=== PATIENT | female | born 1970 | race Caucasian/White ===

== ENCOUNTER 2025-01-30 15:43 | Observation (INO) ==
--- NOTE | 2025-01-30 15:57 | Emergency Department Note ---
Impression & Plan GI bleed, Acute blood loss anemia ED Provider Note NAME: MARIA A DE LA CRUZ AGE: 54 SEX: F : 1970 ARRIVES VIA: Ambulance INFORMANT: Patient, ED PROVIDER(S): Tigre Jeong MD CHIEF COMPLAINT: Rectal bleeding MEDICAL DECISION MAKING: Patient presents due to concern for dark rectal bleeding. Patient is not from the area but does have a prior history of diverticulitis does take diclofenac as well as aspirin. IV was established and blood work was obtained along with a [id number]. Patient ordered IV fluids. CT abdomen pelvis performed. PPI bolus and drip ordered. The patient's plan of care was 8. Patient reports that her baseline hemoglobin about 2 weeks ago was greater than 10. Patient with a white count of 15 hemoglobin of 8.2. The patient's platelet count is 507. Kidney function is unremarkable. Blood sugar 142. Patient's CT abdomen pelvis is negative. I did speak the on-call hospital service given the patient's GI bleed and low hemoglobin. Patient was admitted to the medicine service by Dr. Stauffer. Discussion w/ other healthcare providers: Dr. Stauffer inpatient medicine service Prior /Outside records reviewed: none Differential diagnosis: Diverticulitis, AVM, coagulopathy, colitis, inflammatory bowel disease, malignancy, esophagitis, peptic ulcer disease, variceal bleed, gastritis, fissure, hemorrhoids, as well as other pathologies. Diagnostics, as interpreted by me: ECG: Normal sinus rhythm, rate of 87, normal intervals, normal axis no ST elevations. Cardiac monitoring: An order was placed for continuous cardiac monitoring. The monitor shows a rate of 89 with sinus rhythm. Patient was placed on pulse oximetry Medical decision rules: None Imaging studies: I informally interpreted the patient's CT abdomen pelvis does not show evidence of obvious obstruction with formal report to follow. HPI: Patient presents due to concern for rectal bleeding. The patient is reports some dark and occasionally red discolored stool and blood with associated clots that began this morning. The patient is having about 4 bouts of this most recently while at the [employer]. The patient does complain of diffuse abdominal pain although worse in the left lower quadrant. Patient does have a history of diverticulitis. Patient does take diclofenac twice a day for back pain. Patient also does take a baby aspirin. She does have a prior history of a carotid aneurysm status post clip per coiling. Patient does follow with a Dr. Luc SCHERER in [place]. The patient is appear visiting. Patient does complain of feeling lightheaded and dizzy. PAST MEDICAL HISTORY: Degenerative disc disease, carotid aneurysm, diverticulitis PAST SURGICAL HISTORY: hysterectomy, carotid clip/coiling SOCIAL HISTORY: See Below HOME MEDICATIONS: See Below ALLERGIES: See Below VITALS: See Below PHYSICAL EXAMINATION: GENERAL: NAD, non-toxic. EYE EXAM: Normal conjunctiva. PERRL, no anisocoria and EOM's grossly intact w/o pain. OROPHARYNX: Moist mucus membranes, grossly normal dentition. NECK: Trachea midline, no stridor. LUNGS: Clear to auscultation. Normal chest wall mechanics. HEART: NSR, no MRG. ABDOMEN: Abdomen soft, diffuse abdominal discomfort most prominent in the left lower quadrant, no masses, no rebound or guarding. BACK: No CVA TTP. SKIN: No rashes and no bruising. UPPER EXTREMITIES: Upper extremities are grossly normal. LOWER EXTREMITIES: Grossly normal, no edema. NEURO EXAM: Awake and alert, follows commands, no obvious facial asymmetry, normal speech, moves all 4 extremities. Past Med/Surg History Problem List (Updated 01/30/25 @ 18:53 by Tigre Jeong MD) Degenerative joint disease Primary hypothyroidism Acute blood loss anemia (Acute) GI bleed (Acute) Social History Smoking Status: Current every day smoker Tobacco Type: Cigarettes Feels Safe at Home: Yes Allergies Allergies Allergy/AdvReac Type Severity Reaction Status Date / Time bee venom protein (honey bee) Allergy swelling Verified 01/30/25 16:34 cephalexin [From Keflex] Allergy Hives Verified 01/30/25 16:34 ciprofloxacin [From Cipro] Allergy Hives Verified 01/30/25 16:34 doxycycline Allergy Hives Verified 01/30/25 16:34 sulfamethoxazole Allergy Hives Verified 01/30/25 16:34 [From Bactrim] tetracycline Allergy Hives Verified 01/30/25 16:34 trimethoprim [From Bactrim] Allergy Hives Verified 01/30/25 16:34 acetaminophen [From Percocet] AdvReac Gastrointestinal Verified 01/30/25 16:34 Upset oxycodone [From Percocet] AdvReac Gastrointestinal Verified 01/30/25 16:34 Upset topiramate [From Topamax] AdvReac paranoia Verified 01/30/25 16:34 Home Meds Home Medications Medication Instructions Recorded Confirmed Qulipta 1 dose PO QAM 01/30/25 01/30/25 amoxicillin 1 cap PO TID 01/30/25 01/30/25 aspirin 81 mg tablet,delayed 81 mg PO QAM 01/30/25 01/30/25 release biotin 10,000 mcg capsule 10,000 mcg PO QDD 01/30/25 01/30/25 bupropion HCl 200 mg tablet,12 hr 200 mg PO QAM 01/30/25 01/30/25 sustained-release (Wellbutrin SR) calcium carbonate (Calcium 600) 1,200 mg PO QDD 01/30/25 01/30/25 cholecalciferol (vitamin D3) 125 125 mcg PO QDD 01/30/25 01/30/25 mcg (5,000 unit) tablet (Vitamin D3) diclofenac potassium 50 mg tablet 50 mg PO BID 01/30/25 01/30/25 esomeprazole magnesium 40 mg 40 mg PO BID 01/30/25 01/30/25 capsule,delayed release (Nexium) fexofenadine 180 mg tablet 180 mg PO QAM 01/30/25 01/30/25 fluoxetine 20 mg capsule (Prozac) 60 mg PO QAM 01/30/25 01/30/25 gabapentin 300 mg capsule 300 mg PO BID 01/30/25 01/30/25 levothyroxine 50 mcg tablet 50 mcg PO DAILYBB 01/30/25 01/30/25 magnesium 200 mg tablet 400 mg PO QDD 01/30/25 01/30/25 metoclopramide HCl 5 mg tablet 5 mg PO QPM 01/30/25 01/30/25 (Reglan) multivitamin 1 tab PO QAM 01/30/25 01/30/25 Results & Data (ED) Vital Signs Vital Signs - 24 hr 01/30/25 15:57 01/30/25 15:57 01/30/25 16:01 Temperature 36.8 C Temperature Source Oral Pulse Rate 88 88 87 Pulse Rate [Apical] Respiratory Rate 16 16 Respiratory Effort / Characteristics Non-Labored Spontaneous Respiratory Depth Normal Respiratory Pattern Regular Blood Pressure 117/67 Blood Pressure [Right Arm] Blood Pressure Mean 83 Blood Pressure Mean [Right Arm] Pulse Oximetry 95 95 Oxygen Delivery Method Room Air Room Air Sepsis Recent Fever Within 48 Hours No Sepsis New/Unexplained Change in Mental Status No Sepsis Action Taken by Nursing No Action Required 01/30/25 18:00 Temperature Temperature Source Pulse Rate Pulse Rate [Apical] 78 Respiratory Rate 16 Respiratory Effort / Characteristics Non-Labored Spontaneous Respiratory Depth Normal Respiratory Pattern Regular Blood Pressure Blood Pressure [Right Arm] 130/96 Blood Pressure Mean Blood Pressure Mean [Right Arm] 107 Pulse Oximetry 100 Oxygen Delivery Method Room Air Sepsis Recent Fever Within 48 Hours Sepsis New/Unexplained Change in Mental Status Sepsis Action Taken by Shelter Medications Current Medication List: was personally reviewed by me Laboratory Data Attestation: I reviewed the patient's lab results. 01/30/25 15:53 01/30/25 15:53 Lab Results 01/30/25 01/30/25 01/30/25 Range/Units 15:53 15:54 15:58 WBC 15.78 H (4.8-10.8) K/ul RBC 3.22 L (4.20-5.40) M/uL Hgb 8.2 L (12.0-16.0) g/dl POC Hgb 8.5 L (12.0-16.0) g/dl Hct 26.1 L (37.0-47.0) % POC Hct 25 L (37-47) % MCV 81.1 (80.0-100.0) fL MCH 25.5 (25.0-34.0) pg MCHC 31.4 L (32.0-36.0) g/dL RDW Std Deviation 47.9 H (36.4-46.3) fL RDW Coeff of Ricki 16.2 H (11.5-14.5) % Plt Count 507 H (130-400) K/uL MPV 8.4 L (9.4-12.4) fL Immature Gran % (Auto) 0.4 % Neut % (Auto) 73.8 % Lymph % (Auto) 19.5 % Fallon % (Auto) 4.9 % Eos % (Auto) 0.9 % Baso % (Auto) 0.5 % Neut # (Auto) 11.63 H (1.40-6.50) K/uL Lymph # (Auto) 3.08 (1.20-3.40) K/uL Fallon # (Auto) 0.78 H (0.11-0.59) K/uL Eos # (Auto) 0.14 (0.00-0.50) K/uL Baso # (Auto) 0.08 (0.00-0.20) K/uL Immature Gran # (Auto) 0.07 (0.01-0.20) K/uL PT 10.0 (9.0-12.0) Seconds INR 0.9 (0.9-1.1) APTT 22 (21-31) Seconds PTT Ratio 0.8 POC Sodium 137 (135-144) mmol/L Sodium 135 L (136-145) mmol/L POC Potassium 3.6 (3.3-5.0) mmol/L Potassium 3.6 (3.5-5.1) mmol/L POC Chloride 102 (101-112) mmol/L Chloride 104 (98-107) mmol/L Carbon Dioxide 23 (21-32) mmol/L POC Total CO2 20 L (24-31) mmol/L Anion Gap 8 (3-11) POC Anion Gap 19.0 (16-25) mmol/L POC BUN 16 (7-18) mg/dl BUN 17 (6-23) mg/dl Creatinine 0.78 (0.6-1.2) mg/dl POC Creatinine 0.8 (0.6-1.3) mg/dl Est Cr Clr Drug Dosing 101.0 ml/min eGFR 90.20 BUN/Creatinine Ratio 21.8 H (10-20) Glucose 142 H (70-99(Fasting)) mg/dl POC Glucose (other) 139 H (70-99) mg/dl Calcium 8.7 (8.6-10.3) mg/dl POC Ioniz Calcium Nathen 1.16 (1.12-1.32) mmol/l Total Bilirubin 0.2 (0.2-1.0) mg/dl AST 13 (13-39) U/L ALT 13 (7-52) U/L Alkaline Phosphatase 81 (34-104) U/L Total Protein 6.2 (6.0-8.3) gm/dl Albumin 3.5 (3.4-5.0) gm/dl Globulin 2.7 (2.5-4.0) gm/dl Albumin/Globulin Ratio 1.3 (0.9-2) Blood Type AB Positive Antibody Screen NEGATIVE Administered Medications Pantoprazole Sodium 40 mg/ (Dextrose) 100 mls @ 20 mls/hr IV Q5H JONATHAN Stop: 03/01/25 16:14 Last Admin: 01/30/25 16:36 Dose: 8 mg/hr, 20 mls/hr Documented By: ELDON Discontinued Medications Sodium Chloride (Nss) 1,000 mls @ 999 mls/hr IV .Q1H1M JONATHAN Stop: 01/30/25 17:00 Last Infusion: 01/30/25 17:34 Dose: Infused Documented By: Admin: 01/30/25 16:18 Dose: 999 mls/hr Documented By: ELDON Pantoprazole Sodium 80 mg/ (Dextrose) 120 mls @ 480 mls/hr IV NOW ONE Stop: 01/30/25 16:06 Last Infusion: 01/30/25 17:34 Dose: Infused Documented By: Admin: 01/30/25 16:18 Dose: 480 mls/hr Documented By: ELDON Ioversol (Optiray 320 100ml) 93 ml IV ONCE ONE Stop: 01/30/25 16:14 Last Admin: 01/30/25 16:13 Dose: 93 ml Documented By: BRIANNA Pantoprazole Sodium (Pantoprazole Bolus/Drip) 1 each IV NOW STA Stop: 01/30/25 15:53 Last Admin: 01/30/25 16:24 Dose: Not Given Documented By: ELDON Imaging Data Radiologist's Impression: Abdomen/Pelvis CT 01/30/25 15:52 EXAM: CT Abdomen and Pelvis Without Intravenous Contrast INDICATION: Rectal bleeding. TECHNIQUE: Axial computed tomography images of the abdomen and pelvis without intravenous contrast. Sagittal and coronal reformatted images were created and reviewed. This CT exam was performed using one or more of the following dose reduction techniques: automated exposure control, adjustment of the mA and/or kV according to patient size, and/or use of iterative reconstruction technique. CONTRAST: 93 ml of Optiray 320 was administered intravenously. COMPARISON: No relevant prior studies available. FINDINGS: Limitations: None. Lung bases: No abnormality noted. Pleural space: No visualized pleural effusion or pneumothorax. Heart: No abnormality noted. Mediastinum: No abnormality noted. ABDOMEN: Liver: Lack of intravenous contrast limits detection of some masses. No abnormality noted. Gallbladder and bile ducts: No calcified stones or surrounding fluid. No ductal dilation. Pancreas: No pancreatic mass, calcification, inflammation or ductal dilation noted. Spleen: No significant abnormality noted. Adrenals: No significant abnormality noted. Kidneys and ureters: No abnormality noted. No stones. No hydronephrosis. No significant perinephric fluid. Stomach and bowel: No distension or mucosal thickening. No inflammation noted. PELVIS: Appendix: No findings to suggest acute appendicitis. Bladder: Appears normal for the degree of filling. No stones or inflammation. No large mass. Masses may not be detected in the absence of opacification. Reproductive: No abnormalities noted. ABDOMEN and PELVIS: Intraperitoneal space: No free air. No significant fluid collection. Bones/joints: Moderate convex left scoliotic curvature of the lumbar spine. Degenerative changes present most severe at L3-L4. No acute osseous abnormality. Degenerative changes noted throughout the spine. No acute osseous abnormality seen. Soft tissues: No significant abnormality noted. Vasculature: Atherosclerotic calcification of the aorta and branches. No aneurysm. Lymph nodes: No pathologically enlarged lymph nodes. IMPRESSION: No acute abnormality noted. ACT 112: N/A Electronically signed by Sary Gordillo 01-30-2025 5:46 PM Discharge Plan Visit Data Chief Complaint: GI Bleed ED Provider: Tigre Jeong Discharge Problem: GI bleed, Acute blood loss anemia Patient Disposition: Admitted As Inpatient Condition: Good Forms Stand Alone Forms: My [facility] Prescriptions Prescriptions: No Action metoclopramide HCl [Reglan] 5 mg Tablet 5 mg PO QPM esomeprazole magnesium [Nexium] 40 mg Capsule,Delayed Release(Dr/Ec) 40 mg PO BID diclofenac potassium 50 mg Tablet 50 mg PO BID fluoxetine [Prozac] 20 mg Capsule 60 mg PO QAM bupropion HCl [Wellbutrin SR] 200 mg Tablet Sustained-Release 12 Hr 200 mg PO QAM aspirin [Aspirin Low-Strength] 81 mg Tablet,Delayed Release (Dr/Ec) 81 mg PO QAM levothyroxine 50 mcg Tablet 50 mcg PO DAILYBB gabapentin 300 mg Capsule 300 mg PO BID Qulipta 1 dose PO QAM Rx Instructions: unknown strength amoxicillin 1 cap PO TID Rx Instructions: started december to take for 10 days for sinus infection, unknown dose calcium carbonate [Calcium 600] 600 mg calcium (1,500 mg) Tablet 1,200 mg PO QDD biotin 10,000 mcg Capsule 10,000 mcg PO QDD magnesium 200 mg Tablet 400 mg PO QDD cholecalciferol (vitamin D3) [Vitamin D3] 125 mcg (5,000 unit) Tablet 125 mcg PO QDD multivitamin Tablet 1 tab PO QAM fexofenadine [Tayler] 180 mg Tablet 180 mg PO QAM Referrals Referrals: PCP,NO [Physician] - Discharge Problem: GI bleed Qualifiers: GI bleed type/associated pathology: unspecified gastrointestinal hemorrhage type Qualified Code(s): K92.2 - Gastrointestinal hemorrhage, unspecified
[2025-01-30 16:08] LABS: Hematocrit (blood only) 26.1 % (37.0-47.0); Hemoglobin 8.2 g/dl (12.0-16.0); Immature Granulocytes # (auto) 0.07 K/uL (0.01-0.20); Immature Granulocytes % (auto) 0.4 %; Mean Corpuscular Hemoglobin 25.5 pg (25.0-34.0); Mean Corpuscular Volume 81.1 fL (80.0-100.0); Platelet Count 507 K/uL (130-400); RDW Standard Deviation 47.9 fL (36.4-46.3); Red Blood Count 3.22 M/uL (4.20-5.40); White Blood Count 15.78 K/ul (4.8-10.8)
[2025-01-30] MEDS: OPTIRAY 320 100ml IV ONE (16:13)
[2025-01-30] MEDS: SODIUM CHLORIDE 0.9% 1,000 ML IV SCH ×2 (16:18→21:56)
[2025-01-30] MEDS: PANTOPRAZOLE BOLUS/DRIP IV STA (16:24)
[2025-01-30 16:25] LABS: Alanine Aminotransferase 13.0 U/L (7-52); Albumin Globulin Ratio 1.3 (0.9-2); Albumin Level 3.5 gm/dl (3.4-5.0); Alkaline Phosphatase 81.0 U/L (34-104); Anion Gap 8.0 (3-11); Bilirubin,Total 0.2 mg/dl (0.2-1.0); Blood Urea Nitrogen 17.0 mg/dl (6-23); Calcium 8.7 mg/dl (8.6-10.3); Carbon Dioxide 23.0 mmol/L (21-32); Chloride 104.0 mmol/L (98-107); Creatinine Clr Calc Pharmacy 101.0 ml/min; Globulin 2.7 gm/dl (2.5-4.0); Glucose 142.0 mg/dl (70-99(Fasting)); Potassium 3.6 mmol/L (3.5-5.1); Sodium 135.0 mmol/L (136-145); Total Protein 6.2 gm/dl (6.0-8.3)
[2025-01-30] MEDS: PANTOprazole 40 MG in DEXTROSE 5% MINI-B 100 ML IV SCH (16:36)
[2025-01-30 16:38] LABS: INR 0.9 (0.9-1.1); Partial Thromboplastin Time 22 Seconds (21-31); Prothrombin Time 10.0 Seconds (9.0-12.0)
--- NOTE | 2025-01-30 17:46 | CT Scan Report ---
EXAM: CT Abdomen and Pelvis Without Intravenous Contrast INDICATION: Rectal bleeding. TECHNIQUE: Axial computed tomography images of the abdomen and pelvis without intravenous contrast. Sagittal and coronal reformatted images were created and reviewed. This CT exam was performed using one or more of the following dose reduction techniques: automated exposure control, adjustment of the mA and/or kV according to patient size, and/or use of iterative reconstruction technique. CONTRAST: 93 ml of Optiray 320 was administered intravenously. COMPARISON: No relevant prior studies available. FINDINGS: Limitations: None. Lung bases: No abnormality noted. Pleural space: No visualized pleural effusion or pneumothorax. Heart: No abnormality noted. Mediastinum: No abnormality noted. ABDOMEN: Liver: Lack of intravenous contrast limits detection of some masses. No abnormality noted. Gallbladder and bile ducts: No calcified stones or surrounding fluid. No ductal dilation. Pancreas: No pancreatic mass, calcification, inflammation or ductal dilation noted. Spleen: No significant abnormality noted. Adrenals: No significant abnormality noted. Kidneys and ureters: No abnormality noted. No stones. No hydronephrosis. No significant perinephric fluid. Stomach and bowel: No distension or mucosal thickening. No inflammation noted. PELVIS: Appendix: No findings to suggest acute appendicitis. Bladder: Appears normal for the degree of filling. No stones or inflammation. No large mass. Masses may not be detected in the absence of opacification. Reproductive: No abnormalities noted. ABDOMEN and PELVIS: Intraperitoneal space: No free air. No significant fluid collection. Bones/joints: Moderate convex left scoliotic curvature of the lumbar spine. Degenerative changes present most severe at L3-L4. No acute osseous abnormality. Degenerative changes noted throughout the spine. No acute osseous abnormality seen. Soft tissues: No significant abnormality noted. Vasculature: Atherosclerotic calcification of the aorta and branches. No aneurysm. Lymph nodes: No pathologically enlarged lymph nodes. IMPRESSION: No acute abnormality noted. ACT 112: N/A Electronically signed by Sary Gordillo 01-30-2025 5:46 PM
--- NOTE | 2025-01-30 18:28 | History & Physical Report ---
Date of Service January 30, 2025 Assessment & Plan (1) GI bleed: Plan: Suspected lower GI source probably from diverticulosis. Clear liquid diet for now along with IV fluids. Serial labs. Will obtain GI consult if her symptoms persist (2) Acute blood loss anemia: Plan: Hemoglobin slightly low at 8.2 on admission. Will follow every 6 hours. Transfuse as needed to keep hemoglobin greater than 7. She has given consent for blood transfusion if it becomes necessary (3) Primary hypothyroidism: Plan: Continue current thyroid replacement. Will check free T3, free T4, and TSH level (4) Degenerative joint disease: Plan: Diclofenac is on hold. Symptomatic treatment if necessary Plan Anticipate eventual discharge back to her home when lower GI bleeding has stopped and hemoglobin is stable. History of Present Illness Chief Complaint: Bloody stool Primary Care Provider: Modesto Larsen MD 54-year-old white female with a 1 day history of rectal bleeding with some clots and grossly bloody stool. She denies any nausea or vomiting. She has diffuse abdominal pain. No previous history of GI bleed. She states she takes Voltaren on a daily basis along with a baby aspirin daily. She is from out of town visiting family members. Coagulation parameters are normal. She is anemic with hemoglobin 8.2 on admission. She has given consent for blood transfusion if it becomes necessary. Serial labs ordered. Allergies Allergy/AdvReac Type Severity Reaction Status Date / Time bee venom protein (honey bee) Allergy swelling Verified 01/30/25 16:34 cephalexin [From Keflex] Allergy Hives Verified 01/30/25 16:34 ciprofloxacin [From Cipro] Allergy Hives Verified 01/30/25 16:34 doxycycline Allergy Hives Verified 01/30/25 16:34 sulfamethoxazole Allergy Hives Verified 01/30/25 16:34 [From Bactrim] tetracycline Allergy Hives Verified 01/30/25 16:34 trimethoprim [From Bactrim] Allergy Hives Verified 01/30/25 16:34 acetaminophen [From Percocet] AdvReac Gastrointestinal Verified 01/30/25 16:34 Upset oxycodone [From Percocet] AdvReac Gastrointestinal Verified 01/30/25 16:34 Upset topiramate [From Topamax] AdvReac paranoia Verified 01/30/25 16:34 Home Medications Medication Instructions Recorded Confirmed Type Qulipta 1 dose PO QAM 01/30/25 01/30/25 History amoxicillin 1 cap PO TID 01/30/25 01/30/25 History aspirin 81 mg tablet,delayed 81 mg PO QAM 01/30/25 01/30/25 History release biotin 10,000 mcg capsule 10,000 mcg PO QDD 01/30/25 01/30/25 History bupropion HCl 200 mg tablet,12 hr 200 mg PO QAM 01/30/25 01/30/25 History sustained-release (Wellbutrin SR) calcium carbonate (Calcium 600) 1,200 mg PO QDD 01/30/25 01/30/25 History cholecalciferol (vitamin D3) 125 125 mcg PO QDD 01/30/25 01/30/25 History mcg (5,000 unit) tablet (Vitamin D3) diclofenac potassium 50 mg tablet 50 mg PO BID 01/30/25 01/30/25 History esomeprazole magnesium 40 mg 40 mg PO BID 01/30/25 01/30/25 History capsule,delayed release (Nexium) fexofenadine 180 mg tablet 180 mg PO QAM 01/30/25 01/30/25 History fluoxetine 20 mg capsule (Prozac) 60 mg PO QAM 01/30/25 01/30/25 History gabapentin 300 mg capsule 300 mg PO BID 01/30/25 01/30/25 History levothyroxine 50 mcg tablet 50 mcg PO DAILYBB 01/30/25 01/30/25 History magnesium 200 mg tablet 400 mg PO QDD 01/30/25 01/30/25 History metoclopramide HCl 5 mg tablet 5 mg PO QPM 01/30/25 01/30/25 History (Reglan) multivitamin 1 tab PO QAM 01/30/25 01/30/25 History Past Med/Surg History Problem List (Updated 01/30/25 @ 18:27 by Grant Stauffer MD) Degenerative joint disease Primary hypothyroidism Acute blood loss anemia GI bleed Social History Smoking Status: Current every day smoker Tobacco Type: Cigarettes Feels Safe at Home: Yes Review of Systems 2 Review of Systems: Constitutionalno fever or chills ENTno blurred vision, no double vision, no epistaxis, no sore throat Respiratoryno cough, no wheezing, no shortness of breath Cardiacno palpitations, no chest pain, no syncope Lawanda nausea, vomiting, melena. Complaining of mild diffuse abdominal discomfort and occasional cramping GUno urinary retention, no urinary incontinence, no dysuria, no hematuria Musculoskeletalno joint pain, no muscle tenderness Skinno bruising, no rashes, no pruritus Neurono isolated weakness, no paresthesia, no weakness Psychno depression, no anxiety Physical Exam 2 Physical Exam: General-alert and oriented x3, no fever, no chills. Appears pale HEENT-head atraumatic and normocephalic, pupils equal and reactive to light, extraocular muscles intact Neck-no lymphadenopathy or thyromegaly, trachea midline Chest-clear to auscultation. No rales, wheezing or rhonchi Cardiac-regular rate and rhythm, normal S1 and S2 Abdomen-normal bowel sounds, no hepatosplenomegaly. Diffuse mild tenderness. No palpable masses. No rebound or guarding Extremities-no cyanosis, clubbing, or edema Neuro-cranial nerves II through XII intact, motor and sensory function within normal limits, strength symmetrical, no focal deficits Psych-normal affect, normal mood Results & Data Results & Data Vital Signs (Past 12 Hours) Vital Signs Temp Pulse Pulse Resp BP BP Pulse Ox 01/30/25 18:00 78 16 130/96 100 01/30/25 16:01 87 01/30/25 15:57 88 16 95 01/30/25 15:57 36.8 C 88 16 117/67 95 O2 Del Method 01/30/25 18:00 Room Air 01/30/25 16:01 01/30/25 15:57 Room Air 01/30/25 15:57 Room Air Laboratory Results 01/30/25 15:53 01/30/25 15:53 Code Status & VTE Plan Code Status Full code PG Care Time/CCT Total # of Minutes Spent Total Time Spent with Patient: Total time spent is greater than 50% in coordination of care (as documented) at patient's floor/unit and/or counseling patient: Coding Level of Care Code 80454 INT INP/OBS CARE 3/75MIN Diagnoses GI bleed K92.2 Acute blood loss anemia D62 Primary hypothyroidism E03.9 Degenerative joint disease M19.90
[2025-01-30] MEDS ORDERED: ONDANSETRON INJ 2 MG/ML 2 ML VIAL IV PRN (21:37)
[2025-01-30] MEDS: GABAPENTIN 300 MG CAP PO SCH (21:57)
[2025-01-30] MEDS: METOCLOPRAMIDE HCL 5 MG TABLET PO SCH (21:58)
[2025-01-30 22:15] LABS: Thyroid Stimulating Hormone 2.253 uIu/ml (0.300-4.500)
[2025-01-30 22:17] LABS: T4 Free Thyroxine 1.15 ng/dl (0.61-1.60)
[2025-01-30] MEDS: PANTOprazole 40 MG/10 ML SYR IV SCH (22:58)
[2025-01-30 23:51] LABS: Hematocrit (blood only) 21.0 % (37.0-47.0); Hemoglobin 6.6 g/dl (12.0-16.0)
[2025-01-31] MEDS ORDERED: SODIUM CHLORIDE 0.9% 100 ML IV PRN (00:11)
[2025-01-31 05:08] LABS: Hematocrit (blood only) 23.4 % (37.0-47.0); Hemoglobin 7.7 g/dl (12.0-16.0); Immature Granulocytes # (auto) 0.05 K/uL (0.01-0.20); Immature Granulocytes % (auto) 0.4 %; Mean Corpuscular Hemoglobin 27.0 pg (25.0-34.0); Mean Corpuscular Volume 82.1 fL (80.0-100.0); Platelet Count 398 K/uL (130-400); RDW Standard Deviation 47.7 fL (36.4-46.3); Red Blood Count 2.85 M/uL (4.20-5.40); White Blood Count 12.51 K/ul (4.8-10.8)
[2025-01-31 05:24] LABS: Anion Gap 5.0 (3-11); Blood Urea Nitrogen 10.0 mg/dl (6-23); Calcium 8.5 mg/dl (8.6-10.3); Carbon Dioxide 24.0 mmol/L (21-32); Chloride 108.0 mmol/L (98-107); Creatinine Clr Calc Pharmacy 113.0 ml/min; Glucose 105.0 mg/dl (70-99(Fasting)); Potassium 3.8 mmol/L (3.5-5.1); Sodium 137.0 mmol/L (136-145)
[2025-01-31] MEDS: LEVOTHYROXINE SODIUM 50 MCG TABLET PO SCH (06:10)
[2025-01-31 08:43] LABS: RBC Morphology Unremarkable
--- NOTE | 2025-01-31 09:18 | Gastrointestinal Consultation ---
Date of Consultation January 31, 2025 Assessment & Plan (1) GI bleed: Pleasant lady with one day of bloody diarrhea. Her story sounds suggestive of an acute infectious enteritis that seems to have resolved. She could also have had a diverticular hemorrhage. She seems to have stopped bleeding since she hasn't had a BM since yesterday before admission. She has had a recent colonoscopy so I don't think anything emergent needs to be done. If she has no further episodes then I think she can go home today and follow up with her GI doctor. She is going to contact him and perhaps add a colonoscopy to her EGD that is already scheduled. Of note, she has been on amoxicillin. It is possible she has c. diff colitis but since the diarrhea has stopped I doubt this and would not pursue it further. History of Present Illness Reason for Consultation: rectal bleeding Attending Physician: Grant Stauffer MD History of Present Illness 54 year old female who was making the trip from [facility] to [place] yesterday. At 9:30 yesterday morning, while on the road she had an episode of diarrhea with blood and clots. About an hour later she had another episode. She went to eat at [employer] and had another episode which was larger in volume. She did not have pain with it but she was nauseated. She tells me she ate a sausage and egg sandwich from [facility] about 90 minutes before her first episode yesterday. She does not recall what she ate the night before. She tells me she had diverticulitis about 10 years ago but has had two colonoscopies since that didn't show diverticular disease. Her last colonoscopy was in 2022. She carries the diagnosis of microscopic colitis but that responded to budesonide and she has not had consistent diarrhea since. She was not having diarrhea prior to yesterday. She also carries the diagnosis of gastroparesis and reflux. She is scheduled for an EGD with endoflip on 03/24. She has had no further bleeding spells since yesterday afternoon and feels back to normal today. She also says she needs to go home today. Allergies Allergy/AdvReac Type Severity Reaction Status Date / Time bee venom protein (honey bee) Allergy swelling Verified 01/30/25 16:34 cephalexin [From Keflex] Allergy Hives Verified 01/30/25 16:34 ciprofloxacin [From Cipro] Allergy Hives Verified 01/30/25 16:34 doxycycline Allergy Hives Verified 01/30/25 16:34 sulfamethoxazole Allergy Hives Verified 01/30/25 16:34 [From Bactrim] tetracycline Allergy Hives Verified 01/30/25 16:34 trimethoprim [From Bactrim] Allergy Hives Verified 01/30/25 16:34 acetaminophen [From Percocet] AdvReac Gastrointestinal Verified 01/30/25 16:34 Upset oxycodone [From Percocet] AdvReac Gastrointestinal Verified 01/30/25 16:34 Upset topiramate [From Topamax] AdvReac paranoia Verified 01/30/25 16:34 Home Medications Medication Instructions Recorded Confirmed Type Qulipta 1 dose PO QAM 01/30/25 01/30/25 History amoxicillin 1 cap PO TID 01/30/25 01/30/25 History aspirin 81 mg tablet,delayed 81 mg PO QAM 01/30/25 01/30/25 History release biotin 10,000 mcg capsule 10,000 mcg PO QDD 01/30/25 01/30/25 History bupropion HCl 200 mg tablet,12 hr 200 mg PO QAM 01/30/25 01/30/25 History sustained-release (Wellbutrin SR) calcium carbonate (Calcium 600) 1,200 mg PO QDD 01/30/25 01/30/25 History cholecalciferol (vitamin D3) 125 125 mcg PO QDD 01/30/25 01/30/25 History mcg (5,000 unit) tablet (Vitamin D3) diclofenac potassium 50 mg tablet 50 mg PO BID 01/30/25 01/30/25 History esomeprazole magnesium 40 mg 40 mg PO BID 01/30/25 01/30/25 History capsule,delayed release (Nexium) fexofenadine 180 mg tablet 180 mg PO QAM 01/30/25 01/30/25 History fluoxetine 20 mg capsule (Prozac) 60 mg PO QAM 01/30/25 01/30/25 History gabapentin 300 mg capsule 300 mg PO BID 01/30/25 01/30/25 History levothyroxine 50 mcg tablet 50 mcg PO DAILYBB 01/30/25 01/30/25 History magnesium 200 mg tablet 400 mg PO QDD 01/30/25 01/30/25 History metoclopramide HCl 5 mg tablet 5 mg PO QPM 01/30/25 01/30/25 History (Reglan) multivitamin 1 tab PO QAM 01/30/25 01/30/25 History Patient History Social History Smoking Status: Current every day smoker Tobacco Type: Cigarettes Cigarettes Per Day: 1/2 pack; Hx Alcohol Use: No Hx Substance Use: No Preferred Language: Maori Communication Ability: Effective Telecommunication Equipment Repairer Required: No Beliefs That Will Affect Care: None Current Living Situation: Family Feels Safe at Home: Yes Assistive Devices: Glasses Review of Systems Review of Systems: All systems reviewed & are unremarkable except as noted in HPI & below Physical Exam Physical Exam: Pleasant female in no distress Constitutional: WD/WN, vitals as above Neck: trachea midline, no thyromegaly Respiratory: normal respiratory effort, lungs clear to auscultation Cardiovascular: RRR, no murmur, no edema Gastrointestinal (Abdomen): normal bowel sounds, soft, nontender, no hepatosplenomegaly Results & Data Vital Signs (Past 12 Hours) Vital Signs Temp Pulse Pulse Pulse Resp BP BP 01/31/25 07:27 36.8 C 77 17 139/69 01/31/25 07:08 80 01/31/25 03:50 36.9 C 76 16 134/80 01/31/25 02:50 36.4 C L 76 18 143/79 H 01/31/25 01:50 EST 36.3 C L 79 16 121/76 01/31/25 01:20 EST 36.9 C 83 16 128/76 01/31/25 01:05 EST 36.9 C 83 16 131/75 01/31/25 01:28 EDT 36.9 C 83 16 128/76 01/30/25 23:22 36.4 C L 77 16 127/56 L Pulse Ox O2 Del Method 01/31/25 07:27 97 Room Air 01/31/25 07:08 01/31/25 03:50 95 Room Air 01/31/25 02:50 97 Room Air 01/31/25 01:50 EST 96 Room Air 01/31/25 01:20 EST 96 Room Air 01/31/25 01:05 EST 99 Room Air 01/31/25 01:28 EDT 96 01/30/25 23:22 98 Room Air Laboratory Results 01/31/25 01/30/25 01/30/25 Range/Units 04:24 22:54 15:58 WBC 12.51 H (4.8-10.8) K/ul RBC 2.85 L (4.20-5.40) M/uL Hgb 7.7 L 6.6 L* (12.0-16.0) g/dl POC Hgb 8.5 L (12.0-16.0) g/dl Hct 23.4 L 21.0 L (37.0-47.0) % POC Hct 25 L (37-47) % MCV 82.1 (80.0-100.0) fL MCH 27.0 (25.0-34.0) pg MCHC 32.9 (32.0-36.0) g/dL RDW Std Deviation 47.7 H (36.4-46.3) fL RDW Coeff of Ricki 15.8 H (11.5-14.5) % Plt Count 398 (130-400) K/uL MPV 8.9 L (9.4-12.4) fL Immature Gran % (Auto) 0.4 % Neut % (Auto) 68.4 % Lymph % (Auto) 22.5 % Irion % (Auto) 7.0 % Eos % (Auto) 1.3 % Baso % (Auto) 0.4 % Neut # (Auto) 8.57 H (1.40-6.50) K/uL Lymph # (Auto) 2.81 (1.20-3.40) K/uL Irion # (Auto) 0.87 H (0.11-0.59) K/uL Eos # (Auto) 0.16 (0.00-0.50) K/uL Baso # (Auto) 0.05 (0.00-0.20) K/uL Immature Gran # (Auto) 0.05 (0.01-0.20) K/uL RBC Morphology Unremarkable PT (9.0-12.0) Seconds INR (0.9-1.1) APTT (21-31) Seconds PTT Ratio POC Sodium 137 (135-144) mmol/L Sodium 137 (136-145) mmol/L POC Potassium 3.6 (3.3-5.0) mmol/L Potassium 3.8 (3.5-5.1) mmol/L POC Chloride 102 (101-112) mmol/L Chloride 108 H (98-107) mmol/L Carbon Dioxide 24 (21-32) mmol/L POC Total CO2 20 L (24-31) mmol/L Anion Gap 5 (3-11) POC Anion Gap 19.0 (16-25) mmol/L POC BUN 16 (7-18) mg/dl BUN 10 (6-23) mg/dl Creatinine 0.68 (0.6-1.2) mg/dl POC Creatinine 0.8 (0.6-1.3) mg/dl Est Cr Clr Drug Dosing 113.0 ml/min eGFR 103.43 BUN/Creatinine Ratio 14.7 (10-20) Glucose 105 H (70-99(Fasting)) mg/dl POC Glucose (other) 139 H (70-99) mg/dl Calcium 8.5 L (8.6-10.3) mg/dl POC Ioniz Calcium Nathen 1.16 (1.12-1.32) mmol/l Total Bilirubin (0.2-1.0) mg/dl AST (13-39) U/L ALT (7-52) U/L Alkaline Phosphatase (34-104) U/L Total Protein (6.0-8.3) gm/dl Albumin (3.4-5.0) gm/dl Globulin (2.5-4.0) gm/dl Albumin/Globulin Ratio (0.9-2) TSH (0.300-4.500) uIu/ml Free T4 (0.61-1.60) ng/dl Free T3 (2.3-4.2) pg/ml Blood Type Blood Type Recheck AB Positive Antibody Screen Crossmatch 01/30/25 01/30/25 Range/Units 15:54 15:53 WBC 15.78 H (4.8-10.8) K/ul RBC 3.22 L (4.20-5.40) M/uL Hgb 8.2 L (12.0-16.0) g/dl POC Hgb (12.0-16.0) g/dl Hct 26.1 L (37.0-47.0) % POC Hct (37-47) % MCV 81.1 (80.0-100.0) fL MCH 25.5 (25.0-34.0) pg MCHC 31.4 L (32.0-36.0) g/dL RDW Std Deviation 47.9 H (36.4-46.3) fL RDW Coeff of Ricki 16.2 H (11.5-14.5) % Plt Count 507 H (130-400) K/uL MPV 8.4 L (9.4-12.4) fL Immature Gran % (Auto) 0.4 % Neut % (Auto) 73.8 % Lymph % (Auto) 19.5 % Irion % (Auto) 4.9 % Eos % (Auto) 0.9 % Baso % (Auto) 0.5 % Neut # (Auto) 11.63 H (1.40-6.50) K/uL Lymph # (Auto) 3.08 (1.20-3.40) K/uL Irion # (Auto) 0.78 H (0.11-0.59) K/uL Eos # (Auto) 0.14 (0.00-0.50) K/uL Baso # (Auto) 0.08 (0.00-0.20) K/uL Immature Gran # (Auto) 0.07 (0.01-0.20) K/uL RBC Morphology PT 10.0 (9.0-12.0) Seconds INR 0.9 (0.9-1.1) APTT 22 (21-31) Seconds PTT Ratio 0.8 POC Sodium (135-144) mmol/L Sodium 135 L (136-145) mmol/L POC Potassium (3.3-5.0) mmol/L Potassium 3.6 (3.5-5.1) mmol/L POC Chloride (101-112) mmol/L Chloride 104 (98-107) mmol/L Carbon Dioxide 23 (21-32) mmol/L POC Total CO2 (24-31) mmol/L Anion Gap 8 (3-11) POC Anion Gap (16-25) mmol/L POC BUN (7-18) mg/dl BUN 17 (6-23) mg/dl Creatinine 0.78 (0.6-1.2) mg/dl POC Creatinine (0.6-1.3) mg/dl Est Cr Clr Drug Dosing 101.0 ml/min eGFR 90.20 BUN/Creatinine Ratio 21.8 H (10-20) Glucose 142 H (70-99(Fasting)) mg/dl POC Glucose (other) (70-99) mg/dl Calcium 8.7 (8.6-10.3) mg/dl POC Ioniz Calcium Nathen (1.12-1.32) mmol/l Total Bilirubin 0.2 (0.2-1.0) mg/dl AST 13 (13-39) U/L ALT 13 (7-52) U/L Alkaline Phosphatase 81 (34-104) U/L Total Protein 6.2 (6.0-8.3) gm/dl Albumin 3.5 (3.4-5.0) gm/dl Globulin 2.7 (2.5-4.0) gm/dl Albumin/Globulin Ratio 1.3 (0.9-2) TSH 2.253 (0.300-4.500) uIu/ml Free T4 1.15 (0.61-1.60) ng/dl Free T3 2.21 L (2.3-4.2) pg/ml Blood Type AB Positive Blood Type Recheck Antibody Screen NEGATIVE Crossmatch See Detail Diagnostic Findings Abdomen/Pelvis CT 01/30/25 15:52 EXAM: CT Abdomen and Pelvis Without Intravenous Contrast INDICATION: Rectal bleeding. TECHNIQUE: Axial computed tomography images of the abdomen and pelvis without intravenous contrast. Sagittal and coronal reformatted images were created and reviewed. This CT exam was performed using one or more of the following dose reduction techniques: automated exposure control, adjustment of the mA and/or kV according to patient size, and/or use of iterative reconstruction technique. CONTRAST: 93 ml of Optiray 320 was administered intravenously. COMPARISON: No relevant prior studies available. FINDINGS: Limitations: None. Lung bases: No abnormality noted. Pleural space: No visualized pleural effusion or pneumothorax. Heart: No abnormality noted. Mediastinum: No abnormality noted. ABDOMEN: Liver: Lack of intravenous contrast limits detection of some masses. No abnormality noted. Gallbladder and bile ducts: No calcified stones or surrounding fluid. No ductal dilation. Pancreas: No pancreatic mass, calcification, inflammation or ductal dilation noted. Spleen: No significant abnormality noted. Adrenals: No significant abnormality noted. Kidneys and ureters: No abnormality noted. No stones. No hydronephrosis. No significant perinephric fluid. Stomach and bowel: No distension or mucosal thickening. No inflammation noted. PELVIS: Appendix: No findings to suggest acute appendicitis. Bladder: Appears normal for the degree of filling. No stones or inflammation. No large mass. Masses may not be detected in the absence of opacification. Reproductive: No abnormalities noted. ABDOMEN and PELVIS: Intraperitoneal space: No free air. No significant fluid collection. Bones/joints: Moderate convex left scoliotic curvature of the lumbar spine. Degenerative changes present most severe at L3-L4. No acute osseous abnormality. Degenerative changes noted throughout the spine. No acute osseous abnormality seen. Soft tissues: No significant abnormality noted. Vasculature: Atherosclerotic calcification of the aorta and branches. No aneurysm. Lymph nodes: No pathologically enlarged lymph nodes. IMPRESSION: No acute abnormality noted. ACT 112: N/A Electronically signed by Sary Gordillo 01-30-2025 5:46 PM (1) GI bleed GI bleed type/associated pathology: unspecified gastrointestinal hemorrhage type Qualified Code(s): K92.2 - Gastrointestinal hemorrhage, unspecified
[2025-01-31] MEDS: MULTIVITAMIN TAB PO SCH (09:48)
[2025-01-31] MEDS: FEXOFENADINE HCL 180 MG TAB PO SCH (09:48)
[2025-01-31 10:03] LABS: Hematocrit (blood only) 24.2 % (37.0-47.0); Hemoglobin 7.6 g/dl (12.0-16.0)
--- NOTE | 2025-01-31 12:25 | Discharge Summary ---
Discharge Summary Date of Service January 31, 2025 Principal Dx & Hospital Course #1 = Principal Diagnosis (1) GI bleed: Suspected lower GI source probably from diverticulosis. She was treated with clear liquid diet and IV fluids while hospitalized. GI consult noted. Serial labs. (2) Acute blood loss anemia: Hemoglobin was low on admission at 8.2. She dropped to 6.6 last evening and received 1 unit of packed red blood cells. Hemoglobin 7.7 this morning, January 31. H&H ordered every 6 hours. Transfuse as needed to keep hemoglobin greater than 7. (3) Primary hypothyroidism: Continue current thyroid replacement. Free T3 level was slightly low at 2.2. Free T4 level acceptable at 1.1. TSH normal at 2.3. (4) Degenerative joint disease: Diclofenac was held during her hospital stay. Symptomatic treatment if necessary Plan The patient elected to leave the hospital AGAINST MEDICAL ADVICE on January 31. Admission HPI Per Admitting Provider 54-year-old white female with a 1 day history of rectal bleeding with some clots and grossly bloody stool. She denies any nausea or vomiting. She has diffuse abdominal pain. No previous history of GI bleed. She states she takes Voltaren on a daily basis along with a baby aspirin daily. She is from out of town visiting family members. Coagulation parameters are normal. She is anemic with hemoglobin 8.2 on admission. She has given consent for blood transfusion if it becomes necessary. Serial labs ordered. Discharge Exam Not applicable. The patient left AGAINST MEDICAL ADVICE Discharge Plan Discharge Items Patient Disposition: Against Medical Advice Reason For Visit: LGIB, acute blood loss anemia Condition on Discharge: Good Activity: Resume your previous activity Non-emergency contact: Primary Care Provider Follow-up/Referrals: Modesto Larsen MD [Primary Care Provider] - Pending Studies at Discharge: No Stand-Alone Forms: Gem, Smoking Cessation Medications and DC Order Prescriptions: Continued metoclopramide HCl [Reglan] 5 mg Tablet 5 mg PO QPM esomeprazole magnesium [Nexium] 40 mg Capsule,Delayed Release(Dr/Ec) 40 mg PO BID diclofenac potassium 50 mg Tablet 50 mg PO BID fluoxetine [Prozac] 20 mg Capsule 60 mg PO QAM bupropion HCl [Wellbutrin SR] 200 mg Tablet Sustained-Release 12 Hr 200 mg PO QAM levothyroxine 50 mcg Tablet 50 mcg PO DAILYBB gabapentin 300 mg Capsule 300 mg PO BID Qulipta 1 dose PO QAM Rx Instructions: unknown strength amoxicillin 1 cap PO TID Rx Instructions: started december to take for 10 days for sinus infection, unknown dose calcium carbonate [Calcium 600] 600 mg calcium (1,500 mg) Tablet 1,200 mg PO QDD biotin 10,000 mcg Capsule 10,000 mcg PO QDD magnesium 200 mg Tablet 400 mg PO QDD cholecalciferol (vitamin D3) [Vitamin D3] 125 mcg (5,000 unit) Tablet 125 mcg PO QDD multivitamin Tablet 1 tab PO QAM fexofenadine [Tayler] 180 mg Tablet 180 mg PO QAM Discontinued aspirin [Aspirin Low-Strength] 81 mg Tablet,Delayed Release (Dr/Ec) 81 mg PO QAM Discharge Orders: Left Against Medical Advice (Routine); Ordered 01/31/25 Ordered By: Grant Stauffer Admission Data Admit Date/Time: 01/30/25 18:13 Attending Provider: Grant Stauffer Admit Provider: Grant Stauffer Primary Care Provider: Modesto Larsen Other Providers: Grant Stauffer; Wu Alvarado Jr Hospital Stay Data Consultations 01/30/25 17:47 ED Decision to Admit Stat 01/31/25 08:25 Consult Gastroenterology Routine Diagnostic Imagining Performed 01/30/25 15:52 CT abd pelvis IV con only Stat Pending Results Patient Have Any Pending Studies at Discharge: No Total Time Total Time Spent Total Time Spent (In Minutes): 35 minutes. Total time included patient exam, discharge planning, medication reconciliation, and communication with other providers. Coding Level of Care Code 57585 IN/OBS DISCH 30 MIN/LESS Diagnoses GI bleed K92.2 GI bleed type/associated pathology: unspecified gastrointestinal hemorrhage type Acute blood loss anemia D62 Primary hypothyroidism E03.9 Degenerative joint disease M19.90
[2025-01-31] MEDS ORDERED: CHOLECALCIFEROL 125 MCG (5,000 UNITS) TAB PO SCH (16:30)
[2025-01-31] MEDS ORDERED: MAGNESIUM OXIDE 400 MG TAB PO SCH (16:30)
[2025-01-31] MEDS ORDERED: CALCIUM CARBONATE 1250MG TAB PO SCH (16:30)
--- NOTE | 2025-01-31 21:29 | Electrocardiogram Report ---
Test Reason : Blood Pressure : */* mmHG Vent. Rate : 87 BPM Atrial Rate : 87 BPM P-R Int : 142 ms QRS Dur : 76 ms QT Int : 376 ms P-R-T Axes : 65 57 56 degrees QTcB Int : 452 ms Poor data quality, interpretation may be adversely affected Normal sinus rhythm Nonspecific ST abnormality Abnormal ECG No previous ECGs available Confirmed by Clif Bernal ([id number]) on 01/31/2025 9:29:24 PM Referred By: REFERRED SELF Confirmed By: Clif Bernal
== END 2025-01-31 12:15 | disposition left against medical advice (07) | DRG 378 ==
LOC: SUATTDRO → ED 15:43 → 2N 18:13 → INTOOBSV 18:13 → 2N 20:53